=== PATIENT | female | born 1940 | race Caucasian/White ===

== ENCOUNTER → 2016-09-21 | Outpatient (CLI) | payer OTHER | LOC: BHFA 14:00 | PROVIDERS: ATTEND Internal Medicine Cardiovascular Disease | DX: I73.9 Peripheral vascular disease, unspecified (principal); J44.9 Chronic obstructive pulmonary disease, unspecified ==

== ENCOUNTER → 2016-12-11 | Outpatient (CLI) | payer OTHER ==
[~2016-12-11] MED LIST: IOPAMIDOL (ISOVUE 370) 100 ML BTL IV ONE
[2016-12-11 14:04] LABS: CREATININE 0.7 mg/dL (0.6-1.0); GLOMERULAR FILTRATION RATE > 60
== END ==
LOC: FIMAGING 13:10
PROVIDERS: ATTEND Internal Medicine Cardiovascular Disease
DX: I71.4 Abdominal aortic aneurysm, without rupture (principal); I77.1 Stricture of artery; I73.9 Peripheral vascular disease, unspecified; I25.10 Atherosclerotic heart disease of native coronary artery without angina pectoris; I51.81 Takotsubo syndrome
CPT/HCPCS: 75635; Q9967

== ENCOUNTER → 2017-01-14 | Outpatient (CLI) | payer OTHER | LOC: FIMAGING 10:20 | PROVIDERS: ATTEND Internal Medicine | DX: Z12.31 Encounter for screening mammogram for malignant neoplasm of breast (principal) | CPT/HCPCS: G0202 ==

== ENCOUNTER → 2017-02-08 | Outpatient (CLI) | payer OTHER | LOC: FIMAGING 09:41 | PROVIDERS: ATTEND Physician Assistant | DX: K82.9 Disease of gallbladder, unspecified (principal); Z83.79 Family history of other diseases of the digestive system | CPT/HCPCS: 78227; A9537 ==

== ENCOUNTER → 2017-05-27 | Outpatient (CLI) | payer OTHER | LOC: BMCIMAGING 12:10 | PROVIDERS: ATTEND Family Medicine | DX: R09.89 Other specified symptoms and signs involving the circulatory and respiratory systems (principal) ==

== ENCOUNTER 2017-07-29 05:42 | Day surgery (SDC) | payer OTHER ==
[2017-07-29] MEDS ORDERED: LIDOCAINE 1% 2 ML INJ ID PRN (05:55)
[2017-07-29] MEDS ORDERED: LR 1,000 ML IV ONE (05:55)
[2017-07-29] MEDS ORDERED: fentaNYL 100 MCG/2 ML INJ ONE (06:40)
[2017-07-29] MEDS ORDERED: PROPOFOL 200 MG/20 ML VIAL ONE (06:40)
[2017-07-29] MEDS ORDERED: LIDOCAINE 2% 5 ML SDV ONE (06:47)
[2017-07-29] MEDS ORDERED: DEXAMETHASONE 4 MG/ML VIAL ONE (06:47)
[2017-07-29] MEDS ORDERED: ROCURONIUM 50 MG/5 ML VIAL ONE (06:47)
--- NOTE | 2017-07-29 06:49 | PDANEPAE ---
ANE History of Present Illness here for lap rey ANE Past Medical History - Cardiovascular History Hx Hypertension: Yes Hx Arrhythmias: No Hx Chest Pain: No Hx Coronary Artery / Peripheral Vascular Disease: Yes Hx CHF / Valvular Disease: No Hx Palpitations: No Cardiovascular History Comment: Takotsubo cardiomyopathy. abdominal aneurysm - Pulmonary History Hx COPD: Yes Hx Asthma/Reactive Airway Disease: No Hx Recent Upper Respiratory Infection: No Hx Oxygen in Use at Home: Yes O2 in Use at Home (L/minute): 2L @ night Hx Sleep Apnea: No Sleep Apnea Screening Result - Last Documented: Positive Pulmonary History Comment: Emphysema - Neurologic History Hx Cerebrovascular Accident: No Hx Seizures: No Hx Dementia: No - Endocrine History Hx Diabetes: No - Renal History Hx Renal Disorders: No - Liver History Hx Hepatic Disorders: No - Neurological & Psychiatric Hx Hx Neurological and Psychiatric Disorders: No - Cancer History Hx Cancer: No - Congenital Disorder History Hx Congenital Disorders: No - GI History Hx Gastrointestinal Disorders: No - Chronic Pain History Chronic Pain: No - Surgical History Prior Surgeries: stent 2015. nose sx. oral sx. tubal ANE Review of Systems Review of Systems: - Exercise capacity METS (RN): 4 METS ANE Patient History - Allergies Allergies/Adverse Reactions: erythromycin base [Erythromycin Base] Allergy (Mild, Verified 07/29/17 06:01) Diarrhea fluticasone propionate [From Advair Diskus] Allergy (Mild, Verified 07/29/17 06: 01) povidone-iodine [From Betadine] Allergy (Verified 02/22/15 09:35) salmeterol xinafoate [From Advair Diskus] Allergy (Verified 02/22/15 09:35) soap [From Betadine] Allergy (Verified 02/22/15 09:35) tiotropium bromide [From Spiriva with HandiHaler] Allergy (Verified 02/22/15 09: 35) - Home Medications Home Medications: Albuterol Sulfate [Albuterol Inhaler Hfa] 1 - 2 puffs IH Q4H PRN 02/22/15 [Last Taken 02/22/17] Aspirin [Aspirin 81mg (*)] 81 mg PO Q2D 02/22/15 [Last Taken 07/29/17 03:45] Cholecalciferol Vit D3 [Vitamin D3 (*)] 1,000 units PO DAILY 02/22/15 [Last Taken 07/22/17] Multivitamins [Multivitamin (*)] 1 each PO DAILY 02/22/15 [Last Taken 07/22/17] Serevent Diskus (*) BID 07/15/17 [Last Taken 07/29/17 03:45] Spiriva Inhaler (RX) DAILY 07/15/17 [Last Taken 07/29/17 03:45] Atorvastatin Calcium 07/29/17 [Last Taken 07/28/17 19:00] Omeprazole 07/29/17 [Last Taken 07/29/17 03:45] - NPO status NPO Status: no food or drink >8 hours NPO Since - Liquids (Date): 07/28/17 NPO Since - Liquids (Time): 20:00 NPO Since - Solids (Date): 07/28/17 NPO Since - Solids (Time): 16:00 - Anes Hx Anes Hx: no prior problems - Smoking Hx Smoking Status: Former smoker - Alcohol Use Alcohol Use: Occasionally - Family Anes Hx Family Anes Hx: none Family Hx Anesthesia Complications: none ANE Labs/Vital Signs - Vital Signs Blood Pressure: 114/76 Heart Rate: 62 Respiratory Rate: 16 O2 Sat (%): 95 Height: 165.1 cm Weight: 69.853 kg ANE Physical Exam - Airway Neck exam: FROM Mallampati Score: Class 2 Mouth exam: dentures - Pulmonary Pulmonary: no respiratory distress, clear to auscultation - Cardiovascular Cardiovascular: regular rate and rhythym, no murmur, rub, or gallop - ASA Status ASA Status: III ANE Anesthesia Plan Anesthesia Plan: general endotracheal anesthesia
[2017-07-29] MEDS ORDERED: MIDAZOLAM 2 MG/2 ML VIAL IVP ONE (06:52)
[2017-07-29] MEDS ORDERED: LIDOCAINE 1% 300 MG/30 ML SDV ONE (06:59)
[2017-07-29] MEDS ORDERED: BUPIVACAINE 0.5% 30 ML SDV ONE (06:59)
--- NOTE | 2017-07-29 07:31 | PDHPUP ---
History & Physical Update H&P update statement: This history and physical update is based on an assessment of the patient which was completed after admission or registration (within 24 hours), but prior to the surgery/procedure.
[2017-07-29] MEDS ORDERED: SUGAMMADEX SODIUM 200 MG/2 ML VIAL IVP ONE (07:58)
[2017-07-29] MEDS ORDERED: ONDANSETRON 4 MG/2 ML VIAL ONE (07:58)
[2017-07-29] MEDS ORDERED: ONDANSETRON 4 MG/2 ML VIAL IVP PRN (08:13)
[2017-07-29] MEDS ORDERED: fentaNYL 100 MCG/2 ML INJ IVP PRN (08:13)
[2017-07-29] MEDS ORDERED: ALBUTEROL 3 ML DEYVIAL IH PRN (08:13)
[2017-07-29] MEDS ORDERED: ACETAMINOPHEN 500 MG TAB PO PRN (08:13)
[2017-07-29] MEDS ORDERED: HYDROCODONE/APAP 5/325 TAB PO PRN ×2 (08:13→09:05)
[2017-07-29] MEDS ORDERED: OXYCODONE/APAP 5/325 TAB PO PRN (08:13)
[2017-07-29] MEDS ORDERED: NALOXONE HCL 0.4 MG/ML INJ IVP PRN (08:13)
--- NOTE | 2017-07-29 08:47 | POSTANESTH ---
Post Anesthetic Evaluation Cardiovascular Status: Normal, Stable, Similar to Pre-Op Cond Respiratory Status: Normal, Stable, Similar to Pre-op Cond. Level of Consciousness/Mental Status: Can Participate in Eval, Alert and Oriented Pain Control: Adequate, Prn Tx Ordered Nausea/Vomiting Control: Adequate, Prn Tx Ordered Complications Possibly Related to Anesthesia: None Noted
[2017-07-29 09:06] VITALS: TEMP 97.5
--- NOTE | 2017-07-29 09:09 | POSTOPPROG ---
Post Op Note Date of Operation: 07/29/17 Surgeon: Yobani Torres Anesthesiologist: Haven Anesthesia: GET(General Endotracheal) Pre-op Diagnosis: cholecystitis Post-op Diagnosis: same Procedure: lap rey Findings: normal anatomy Inf/Abcess present in the surg proc area at time of surgery?: No Specimen(s): gallbladder
[2017-07-29 09:41] VITALS: BP 121/63; PULSE 59; RESP 18; O2SAT 94
--- NOTE | 2017-07-29 19:03 | GOP ---
[f rep st] OPERATIVE REPORT DATE OF OPERATION: SURGEON: Yobani Torres MD ANESTHESIA: General endotracheal anesthesia. ANESTHESIOLOGIST: Dr. Panchito Patten PREOPERATIVE DIAGNOSIS: A 76-year-old patient presents with symptomatic cholelithiasis. POSTOPERATIVE DIAGNOSIS: A 76-year-old patient presents with symptomatic cholelithiasis. PROCEDURE PERFORMED: Laparoscopic cholecystectomy. FINDINGS: SPECIMENS: Gallbladder to permanent pathology. ESTIMATED BLOOD LOSS: Less than 10 mL. DESCRIPTION OF PROCEDURE: Patient was brought to the operating room. After induction of endotrachea l anesthesia in supine position, her abdomen was prepped with chlorhexidine and draped sterilely. Ti me-out procedure was then performed according to institutional standards. Local anesthetic infused i n skin and subcutaneous tissues of the trocar sites and open supraumbilical trocar placement was perf ormed. The abdomen was insufflated to 15 TOR with carbon dioxide and inspected. There was no sign o f other pathology. The gallbladder was in normal position. The patient was placed in head up, right side tilt to facilitate dissection. Working trocars were placed into the subxiphoid and right subco stal areas under direct visualization. The gallbladder was brought in the field of dissection. Cyst ic duct and cystic artery were identified in the triangle of Calot. The cystic duct and artery are t hen triply clipped and ligated. The gallbladder was taken off the gallbladder bed with electrocauter y. Hemostasis was assured. The gallbladder was brought out through the umbilical incision. Working trocars were then removed. The fascia was then reapproximated at the level of the umbilicus and all 4 ports were reapproximated at the skin level using 4-0 Monocryl. Dermabond was applied. The patie nt was awakened, extubated, and taken to the recovery room in stable condition. No immediate complic ations. FLUIDS GIVEN: 800 cc crystalloid. /[id number]/MODL
== END 2017-07-29 10:20 | disposition home or self-care (01) ==
LOC: FSGY 05:42
PROVIDERS: ATTEND Surgery
PROC: 0FT44ZZ Resection of Gallbladder, Percutaneous Endoscopic Approach (ICD-10-PCS; principal; 2017-07-29 07:15)
DX: K80.20 Calculus of gallbladder without cholecystitis without obstruction (principal); K76.0 Fatty (change of) liver, not elsewhere classified; I71.4 Abdominal aortic aneurysm, without rupture; I25.10 Atherosclerotic heart disease of native coronary artery without angina pectoris; E78.5 Hyperlipidemia, unspecified
CPT/HCPCS: J1100; J2250; J2405; J2704; J3010

== ENCOUNTER → 2017-10-09 | Outpatient (CLI) | payer OTHER | LOC: FLAB 10:45 | PROVIDERS: ATTEND Physician Assistant | DX: M25.561 Pain in right knee (principal); M25.562 Pain in left knee ==

== ENCOUNTER → 2017-10-15 | Outpatient (CLI) | payer OTHER | LOC: CIMAGING 10:38 | PROVIDERS: ATTEND Internal Medicine Cardiovascular Disease | DX: I71.4 Abdominal aortic aneurysm, without rupture (principal); I77.1 Stricture of artery; K57.30 Diverticulosis of large intestine without perforation or abscess without bleeding | CPT/HCPCS: 74174; Q9967 ==

== ENCOUNTER → 2018-02-28 | Outpatient (CLI) | payer OTHER | LOC: FIMAGING 12:50 | PROVIDERS: ATTEND Internal Medicine | DX: Z12.31 Encounter for screening mammogram for malignant neoplasm of breast (principal) ==

== ENCOUNTER → 2018-10-13 | Outpatient (CLI) | payer OTHER ==
[~2018-10-13] MED LIST changes: -IOPAMIDOL (ISOVUE 370) 100 ML BTL IV ONE; +IOPAMIDOL (ISOVUE-370) 150 ML BTL IV ONE
== END ==
LOC: FIMAGING 11:36
PROVIDERS: ATTEND Internal Medicine Cardiovascular Disease
DX: I71.4 Abdominal aortic aneurysm, without rupture (principal)
CPT/HCPCS: 75635; Q9967; 82565-PO

== ENCOUNTER 2018-11-19 08:53 | Day surgery (SDC) | payer OTHER ==
[2018-11-19] MEDS ORDERED: ASPIRIN EC 325 MG TAB PO ONE (08:56)
[2018-11-19] MEDS ORDERED: FAMOTIDINE 20 MG TAB PO ONE (08:56)
[2018-11-19] MEDS ORDERED: DIAZEPAM 5 MG TAB PO ONE (08:56)
[2018-11-19] MEDS ORDERED: diphenhydrAMINE 25 MG CAP PO ONE (08:56)
[2018-11-19] MEDS ORDERED: NS 1,000 ML IV ONE (08:56)
[2018-11-19 09:33] LABS: PLATELET COUNT 252 10^3/uL (150-400)
[2018-11-19 09:41] LABS: INR 1.05 (0.83-1.16); PROTIME(PATIENT) 13.3 SEC (12.0-15.0)
[2018-11-19] MEDS ORDERED: MIDAZOLAM 2 MG/2 ML VIAL ONE ×2 (10:25)
[2018-11-19] MEDS ORDERED: fentaNYL 100 MCG/2 ML INJ ONE (10:25)
[2018-11-19] MEDS ORDERED: IOPAMIDOL (ISOVUE-300) 100 ML BTL ONE (10:26)
[2018-11-19] MEDS ORDERED: LIDOCAINE 1% 5 ML SDV ONE (10:26)
--- NOTE | 2018-11-19 10:49 | PDPROPOC ---
Sedation Plan of Care Sedation Plan of Care: vital signs stable, mental status noted, patient educated of risks, benefits, alternatives, patient can tolerate sedation ASA Classification: ASA 2 Planned drugs: fentanyl, midazolam Mallampati Score: Class 2 Mallampati Reference Image: Patient passed 3-3-2 rule?: Yes
--- NOTE | 2018-11-19 10:49 | PDHPUP ---
History & Physical Update H&P update statement: This history and physical update is based on an assessment of the patient which was completed after admission or registration (within 24 hours), but prior to the surgery/procedure. H&P update: H&P reviewed & patient examined, no change in patient's condition since H&P completed
[2018-11-19] MEDS ORDERED: ATROPINE SULFATE 1 MG/10 ML SYR IVP PRN (11:55)
[2018-11-19] MEDS ORDERED: NITROGLYCERIN 0.4 MG BTL SL PRN (11:55)
[2018-11-19] MEDS ORDERED: ONDANSETRON 4 MG/2 ML VIAL IVP PRN (11:55)
--- NOTE | 2018-11-19 12:04 | CPIP ---
[f rep st] INVASIVE CARDIAC PROCEDURE DATE OF PROCEDURE: 11/19/2018 PROCEDURE: Right lower extremity angiography via contralateral approach with catheter placed in the right external iliac artery. INDICATION: 1. Claudication. 2. Preoperative evaluation prior to aortic stent graft placement. ACCESS: Patient was prepped and draped in sterile fashion. 1% lidocaine was used to anesthetize the left inguinal region. A 6-Welsh introducer sheath was placed selectively into the left common femo ral artery via modified Seldinger technique. RIGHT LOWER EXTREMITY ANGIOGRAPHY VIA CONTRALATERAL APPROACH WITH CATHETER PLACED IN THE RIGHT ADMINISTRATIVE ASSISTANT COORDINATOR AL ILIAC ARTERY: A 5-Welsh Contra II catheter was advanced into the distal abdominal aorta and refo rmed into its usual position. The catheter was then used to selectively engage the right common jocelyne c artery and images obtained. The right common iliac artery bifurcated into the external iliac arter y and the internal iliac artery. The common iliac artery had sequential 30% stenoses in the proximal and ostial segments. The internal iliac artery had sequential 30% stenosis in the mid segment. The external iliac artery was free of any significant disease. The Contra II catheter was then exchanged for a straight flush catheter, which was placed in the righ t external iliac artery and images obtained. The right external iliac artery turned into the common femoral artery. The common femoral artery then bifurcated into the superficial femoral artery and pr ofunda femoral arteries. The common femoral artery had mild luminal irregularities with no stenosis greater than 10%. The profunda femoral artery is free of any significant disease. The superficial f emoral artery had a focal 95% stenosis in the ostial segment. The stenosis appeared to be calcified. The superficial femoral artery had mild luminal irregularities throughout. There was no stenosis g reater than 10% to 15%. The superficial femoral artery then turned into the popliteal artery the pop liteal artery appeared normal. Below the knee, there was 3 vessel runoff. COMPLICATIONS: None. CONCLUSIONS: 1. Focal stenosis at the takeoff of the right superficial femoral artery. 2. Consider endarterectomy. /[id number]/MODL
--- NOTE | 2018-11-21 11:53 | CPEKG ---
Test Reason : OPEN Blood Pressure : / mmHG Vent. Rate : 045 BPM Atrial Rate : 045 BPM P-R Int : 173 ms QRS Dur : 093 ms QT Int : 476 ms P-R-T Axes : 071 027 062 degrees QTc Int : 412 ms Sinus bradycardia Low voltage, extremity leads poor r wave progression Confirmed by Wali Mayers ([id number]) on 11/21/2018 11:53:50 AM Referred By: Wali Mayers Confirmed By:Wali Mayers
== END 2018-11-19 17:00 | disposition home or self-care (01) ==
LOC: FCATH 08:53
PROVIDERS: ATTEND Internal Medicine Cardiovascular Disease
PROC: B41F1ZZ Fluoroscopy of Right Lower Extremity Arteries using Low Osmolar Contrast (ICD-10-PCS; principal; 2018-11-19)
DX: I70.211 Atherosclerosis of native arteries of extremities with intermittent claudication, right leg (principal); I71.4 Abdominal aortic aneurysm, without rupture; I25.10 Atherosclerotic heart disease of native coronary artery without angina pectoris; E78.5 Hyperlipidemia, unspecified; I10 Essential (primary) hypertension
CPT/HCPCS: 36246; 75710; 93005; C1769; J1644; J2250; J3010; Q9967

== ENCOUNTER → 2018-11-25 | Outpatient (CLI) | payer OTHER | LOC: FIMAGING 16:13 ==